=== PATIENT | male | born 1985 | race Caucasian/White ===

== ENCOUNTER 2016-10-30 15:43 | Emergency (ER) | payer BC ==
[2016-10-30 16:25] VITALS: BP 126/81
[2016-10-30] MEDS ORDERED: Ondansetron 4 MG/2 ML SDV IVPUSH ONE (16:27)
[2016-10-30] MEDS ORDERED: Sodium Chloride 0.9% 10 ML Syringe FLUSH PRN (16:27)
[2016-10-30] MEDS ORDERED: Ketorolac 30 MG/ML SDV IVPUSH ONE (16:28)
[2016-10-30] MEDS ORDERED: HYDROmorphone 1 MG/ML Syringe IVPUSH ONE (16:28)
[2016-10-30] MEDS ORDERED: Sodium Chloride 0.9% 1,000 ML IV SCH (16:30)
--- NOTE | 2016-10-30 17:02 | CT ---
CT abdomen and pelvis Technique: Multiple axial sections were obtained from above the kidneys inferiorly to the pubic symphysis. Intravenous and oral contrast was not utilized. Study has been performed as a ureteral stone protocol. Comparison: Previous CT abdomen and pelvis study of 03/16/15. Findings: Mild left-sided hydronephrosis is seen. Left ureter is mildly dilated down to the UVJ. This is due to an obstructing stone measuring about 3.4 mm near the UVJ. No other abnormal calcifications are seen along the course of the ureters. Very minimal nonobstructing stone is noted within the mid left kidney measuring about a millimeter. No abnormal calcifications are seen within the right kidney or right ureter. Visualized lung bases shows nothing acute. Liver has an unremarkable noncontrast appearance. Spleen appears within normal limits. Adrenal glands show no nodule. Pancreas appears within normal limits. Aorta shows no aneurysmal dilatation. No retroperitoneal adenopathy or mesenteric abnormalities are seen. No calcified gallstones are seen. Appendix is seen and appears normal. No pelvic mass or adenopathy is seen. No free fluid or inflammatory change is identified. Impression: 1. Distal left ureteral stone at the UVJ causing mild left-sided hydronephrosis. Minimal 1 mm nonobstructing stone within the mid left kidney. 2. No additional abnormality is seen on noncontrast CT study of the abdomen and pelvis. Diagnostic code #3
--- NOTE | 2016-10-30 18:15 | EDM.PDOC ---
ED HPI GI/ABDOMINAL - General Chief Complaint: Flank Pain Stated Complaint: POSS KIDNEY STONES Time Seen by Provider: 10/30/16 16:12 Source of Information: Reports: Patient History Limitations: Reports: No limitations - History of Present Illness INITIAL COMMENTS - FREE TEXT/NARRATIVE: The patient says he did not feel right this morning and later in the day he developed left flank pain that went to his left lower abdomen. He also has nausea and vomiting. He has a history of kidney stones. He also has some pain in his testicle. Timing/Duration: Reports: Hour(s): Location: flank (left lower abdomen) Quality: Reports: stabbing Severity: severe Context: Denies: sick contact, bad/questionable food, out of country travel, recent surgery, recent trauma, lifting, activity/exercise Associated Symptoms: Reports: back pain, testicular pain, nausea/vomiting. Denies: diarrhea, fever/chills - Related Data Allergies/ADRs: Allergies Allergy/AdvReac Type Severity Reaction Status Date / Time No Known Allergies Allergy Verified 10/30/16 16:25 Home Meds: Home Meds Albuterol [IJD: Ventolin HFA] 2 puff INH Q6HR PRN #18 gm 04/29/16 [Rx] Doxycycline [Vibramycin] 100 mg PO Q12HR #20 cap 04/29/16 [Rx] Ondansetron [Zofran ODT] 4 mg PO Q6H PRN #20 tab.dis 04/29/16 [Rx] Tamsulosin HCl [Flomax] 0.4 mg PO DAILY #7 cap.er.24h 10/30/16 [Rx] oxyCODONE HCl/Acetaminophen [Percocet 5-325 mg Tablet] 1 - 2 each PO Q6HR PRN # 20 tablet 10/30/16 [Rx] Past Medical History - Past Health History Medical/Surgical History: Denies Medical/Surgical History HEENT History: Reports: None Genitourinary History: Reports: Renal calculus Social & Family History - Tobacco Use Smoking Status *Q: Never Smoker Second Hand Smoke Exposure: No - Recreational Drug Use Recreational Drug Use: No ED ROS GENERAL - Review of Systems Review Of Systems: See Below Constitutional: Reports: no symptoms HEENT: Reports: No symptoms Respiratory: Reports: no symptoms Cardiovascular: Reports: No symptoms Endocrine: Reports: no symptoms GI/Abdominal: Reports: Abdominal pain (left lower abdomen) : Reports: flank pain (left) Musculoskeletal: Reports: no symptoms Skin: Reports: no symptoms Neurological: Reports: no symptoms ED EXAM, GI/ABD - Physical Exam Exam: See Below Exam Limited By: No limitations General Appearance: alert, no apparent distress Ears: normal external exam Nose: normal inspection Head: atraumatic, normocephalic Neck: normal inspection Respiratory/Chest: no respiratory distress, lungs clear, normal breath sounds Cardiovascular: regular rate, rhythm, no edema, no murmur GI/Abdominal: soft, non tender, no organomegaly, no mass Back Exam: CVA tenderness (L) (mild) Course - Vital Signs Last Recorded V/S: Last Vital Signs Temp 98.3 F 10/30/16 16:22 Pulse 69 10/30/16 16:22 Resp 16 10/30/16 16:22 BP 126/81 10/30/16 16:22 Pulse Ox 98 10/30/16 16:22 - Orders/Labs/Meds Orders: Active Orders 24 hr Category Date Time Status Peripheral IV Care [RC] . DIRECTED Care 10/30/16 16:27 Active Sodium Chloride 0.9% [Normal Saline] 1,000 ml Med 10/30/16 16:30 Active IV ASDIRECTED Sodium Chloride 0.9% [Saline Flush] Med 10/30/16 16:27 Active 10 ml FLUSH ASDIRECTED PRN ED Antiemetic Medication Reflex [OM.PC] Stat Oth 10/30/16 16:27 Ordered Peripheral IV Insertion Adult [OM.PC] Stat Oth 10/30/16 16:27 Ordered Medication Orders Sodium Chloride (Normal Saline) 1,000 mls @ 125 mls/hr IV ASDIRECTED WILLARD Last Admin: 10/30/16 16:59 Dose: 125 mls/hr Sodium Chloride (Saline Flush) 10 ml FLUSH ASDIRECTED PRN PRN Reason: Keep Vein Open Last Admin: 10/30/16 17:03 Dose: 10 ml Labs: Laboratory Tests 10/30/16 10/30/16 10/30/16 Range/Units 16:30 16:55 16:55 WBC 15.45 H (4.23-9.07) K/mm3 RBC 5.33 (4.63-6.08) M/mm3 Hgb 15.7 (13.7-17.5) gm/L Hct 45.9 (40.1-51.0) % MCV 86.1 (79.0-92.2) fl MCH 29.5 (25.7-32.2) pg MCHC 34.2 (32.2-35.5) g/dl RDW Std Deviation 42.0 (35.1-43.9) fL Plt Count 312 (163-337) K/mm3 MPV 10.1 (9.4-12.3) fl Neut % (Auto) 79.4 H (34.0-67.9) % Lymph % (Auto) 11.6 L (21.8-53.1) % [place] % (Auto) 8.5 (5.3-12.2) % Eos % (Auto) 0.2 L (0.8-7.0) Baso % (Auto) 0.1 (0.1-1.2) % Neut # 12.27 H (1.78-5.38) K/mm3 Lymph # 1.79 (1.32-3.57) K/mm3 [place] # 1.31 H (0.30-0.82) K/mm3 Eos # 0.03 L (0.04-0.54) K/mm3 Baso # 0.02 (0.01-0.08) K/mm3 Sodium 138 (136-145) mEq/L Potassium 3.9 (3.5-5.1) mEq/L Chloride 101 (98-107) mEq/L Carbon Dioxide 21 (21-32) mEq/L Anion Gap 19.9 H (5-15) BUN 14 (7-18) mg/dL Creatinine 1.5 H (0.7-1.3) mg/dL Est Cr Clr Drug Dosing 66.10 mL/min Estimated GFR (MDRD) 54 (>60) mL/min BUN/Creatinine Ratio 9.3 L (14-18) Glucose 89 (74-106) mg/dL Calcium 9.2 (8.5-10.1) mg/dL Total Bilirubin 2.3 H (0.2-1.0) mg/dL AST 21 (15-37) U/L ALT 34 (16-63) U/L Alkaline Phosphatase 73 (46-116) U/L Total Protein 7.8 (6.4-8.2) g/dl Albumin 4.4 (3.4-5.0) g/dl Globulin 3.4 gm/dL Albumin/Globulin Ratio 1.3 (1-2) Lipase 142 (73-393) U/L Urine Color Light yellow (Yellow) Urine Appearance Clear (Clear) Urine pH 5.5 (5.0-8.0) Ur Specific [place] > or = 1.030 (1.005-1.030) Urine Protein Trace H (Negative) Urine Glucose (UA) Negative (Negative) Urine Ketones 3+ H (Negative) Urine Occult Blood 3+ H (Negative) Urine Nitrite Negative (Negative) Urine Bilirubin 1+ H (Negative) Urine Urobilinogen 0.2 (0.2-1.0) Ur Leukocyte Esterase Negative (Negative) Urine RBC 5-10 H (0-5) /hpf Urine WBC 0-5 (0-5) /hpf Ur Epithelial Cells Not seen (0-5) /hpf Urine Bacteria Few (FEW) /hpf Urine Mucus Not seen (FEW) /hpf Meds: Medications Generic Name Dose Route Start Last Admin Trade Name Freq PRN Reason Stop Dose Admin Sodium Chloride 1,000 mls @ 125 mls/hr 10/30/16 16:30 10/30/16 16:59 Normal Saline IV 125 mls/hr ASDIRECTED WILLARD Administration Sodium Chloride 10 ml 10/30/16 16:27 10/30/16 17:03 Saline Flush FLUSH 10 ml ASDIRECTED PRN Administration Keep Vein Open Discontinued Medications Generic Name Dose Route Start Last Admin Trade Name Freq PRN Reason Stop Dose Admin Hydromorphone HCl 1 mg 10/30/16 16:28 10/30/16 17:02 Dilaudid IVPUSH 10/30/16 16:29 1 mg ONETIME ONE Administration Ketorolac Tromethamine 30 mg 10/30/16 16:28 10/30/16 17:01 Toradol IVPUSH 10/30/16 16:29 30 mg ONETIME ONE Administration Ondansetron HCl 4 mg 10/30/16 16:27 10/30/16 17:00 Zofran IVPUSH 10/30/16 16:28 4 mg ONETIME ONE Administration - Re-Assessments/Exams Free Text/Narrative Re-Assessment/Exam: 10/30/16 18:13 I ordered an IV NS at 125mL/hr, zofran 4mg IV, dilaudid 1mg IV and toradol 30mg IV. His labs look good. His UA shows blood. His CT shows a 3.4mm stone at the left UVJ causing mild left-sided hydronephrosis. Minimal 1mm nonobstructing stone within the mid left kidney. He is doing better. I will discharge him on flomax and percocet for pain. Departure - Departure Time of Disposition: 18:15 Disposition: Home, Self-Care 01 Condition: good Clinical Impression: Ureteric colic, Kidney stone on left side, Ureteral calculi Prescriptions: oxyCODONE HCl/Acetaminophen [Percocet 5-325 mg Tablet] 1 - 2 each PO Q6HR PRN # 20 tablet PRN Reason: Pain Tamsulosin HCl [Flomax] 0.4 mg PO DAILY #7 cap.er.24h Referrals: Sergio Silva MD [Physician] - 1 Week (If not better) Forms: ED Department Discharge Additional Instructions: Drink plenty of fluids. Take the flomax daily. Take the percocet as needed for pain. Please return if you are worse. - My Orders Last 24 Hours: My Active Orders 10/30/16 16:27 Peripheral IV Care [RC] . DIRECTED Sodium Chloride 0.9% [Saline Flush] 10 ml FLUSH ASDIRECTED PRN ED Antiemetic Medication Reflex [OM.PC] Stat Peripheral IV Insertion Adult [OM.PC] Stat 10/30/16 16:30 Sodium Chloride 0.9% [Normal Saline] 1,000 ml IV ASDIRECTED - Assessment/Plan Last 24 Hours: My Active Orders 10/30/16 16:27 Peripheral IV Care [RC] . DIRECTED Sodium Chloride 0.9% [Saline Flush] 10 ml FLUSH ASDIRECTED PRN ED Antiemetic Medication Reflex [OM.PC] Stat Peripheral IV Insertion Adult [OM.PC] Stat 10/30/16 16:30 Sodium Chloride 0.9% [Normal Saline] 1,000 ml IV ASDIRECTED
== END 2016-10-30 18:45 | disposition home or self-care (01) ==
LOC: JD.ED 15:43
DX: N20.1 Calculus of ureter (principal); Z87.442 Personal history of urinary calculi; Z79.899 Other long term (current) drug therapy
CPT/HCPCS: 36415; 74176; 80053; 81001; 83690; 85025; 96361; 96374; 96375; 99284; J1170; J1885; J2405; J7040; J7050

== ENCOUNTER 2016-11-01 20:07 | Emergency (ER) | payer BC ==
[2016-11-01] MEDS ORDERED: Ketorolac 30 MG/ML SDV IVPUSH ONE (20:23)
[2016-11-01] MEDS ORDERED: Ondansetron 4 MG/2 ML SDV IVPUSH ONE (20:23)
[2016-11-01 20:24] VITALS: BP 129/74
[2016-11-01] MEDS ORDERED: HYDROmorphone 1 MG/ML Syringe IVPUSH ONE (20:24)
[2016-11-01] MEDS ORDERED: Sodium Chloride 0.9% 1,000 ML IV SCH (20:30)
--- NOTE | 2016-11-01 20:32 | EDM.PDOC ---
ED HPI RENAL/ - General Chief Complaint: Abdominal Pain Stated Complaint: LOWER LEFT SIDE PAIN NAUSEA CONSTIPATION Time Seen by Provider: 11/01/16 20:12 Source of Information: Reports: Patient History Limitations: Reports: No limitations - History of Present Illness INITIAL COMMENTS - FREE TEXT/NARRATIVE: this is a 31-year-old male. He was seen 2 days ago for left flank pain and was found to have a 3.4 mm stone on the left side with some mild hydronephrosis. He was sent home with medicine for pain and Flomax. He states over the last day or so he has not been able to drink fluids without vomiting he feels dehydrated and the pain in the left flank is gotten worse this evening. He denies any fever or chills he has not noted any blood in his urine though the urine has been dark. He denies any other acute symptoms. He is set up to see Dr. Silva in [place] if he does not pass the stone. Patient indicated that at times the pain radiates into the left groin but hasn't gotten into his left testicle at this time. - Related Data Allergies/ADRs: Allergies Allergy/AdvReac Type Severity Reaction Status Date / Time No Known Allergies Allergy Verified 11/01/16 20:16 Home Meds: Home Meds Tamsulosin HCl [Flomax] 0.4 mg PO DAILY #7 cap.er.24h 10/30/16 [Rx] oxyCODONE HCl/Acetaminophen [Percocet 5-325 mg Tablet] 1 - 2 each PO Q6HR PRN # 20 tablet 10/30/16 [Rx] Ondansetron [Zofran ODT] 4 mg PO Q6H PRN #12 tab.dis 11/01/16 [Rx] Past Medical History - Past Health History Medical/Surgical History: Denies Medical/Surgical History HEENT History: Reports: None Genitourinary History: Reports: Renal calculus Social & Family History - Tobacco Use Smoking Status *Q: Never Smoker Second Hand Smoke Exposure: No - Recreational Drug Use Recreational Drug Use: No ED ROS GENERAL - Review of Systems Review Of Systems: See Below Constitutional: Denies: fever, chills HEENT: Reports: No symptoms Respiratory: Reports: no symptoms Cardiovascular: Reports: No symptoms Endocrine: Reports: no symptoms GI/Abdominal: Reports: Decreased appetite, Nausea, Vomiting. Denies: Diarrhea : Reports: flank pain Musculoskeletal: Reports: no symptoms Skin: Reports: no symptoms Neurological: Reports: no symptoms Psychiatric: Reports: No symptoms Hematologic/Lymphatic: Reports: no symptoms Immunologic: Reports: no symptoms ED EXAM, RENAL/ - Physical Exam Exam: See Below Exam Limited By: No limitations General Appearance: alert, WD/WN, no apparent distress Eye Exam: bilateral eye: normal inspection Ears: normal external exam Nose: normal inspection Throat/Mouth: Normal inspection, Normal lips, Normal voice Head: normocephalic Neck: supple Respiratory/Chest: no respiratory distress, lungs clear, normal breath sounds Cardiovascular: regular rate, rhythm, no murmur GI/Abdominal: other (abdomen is enlarged, and soft, he does have some minimal tenderness in the left flank area on palpation but no other abdominal soreness or tenderness on palpation, bowel sounds are decreased) Back Exam: full range of motion Extremities: normal inspection, normal range of motion Neurological: alert, oriented Psychiatric: normal affect, normal mood Skin Exam: Warm, Dry Course - Vital Signs Last Recorded V/S: Last Vital Signs Temp 98.2 F 11/01/16 20:17 Pulse 60 11/01/16 20:17 Resp 18 11/01/16 20:17 BP 129/74 11/01/16 20:17 Pulse Ox 100 11/01/16 20:17 - Orders/Labs/Meds Orders: Active Orders 24 hr Category Date Time Status Sodium Chloride 0.9% [Normal Saline] 1,000 ml Med 11/01/16 20:30 Active IV ASDIRECTED Medication Orders Sodium Chloride (Normal Saline) 1,000 mls @ 1,000 mls/hr IV ASDIRECTED WILLARD Last Admin: 11/01/16 20:29 Dose: 1,000 mls/hr Labs: Laboratory Tests 11/01/16 11/01/16 11/01/16 Range/Units 20:25 20:25 21:11 WBC 12.65 H (4.23-9.07) K/mm3 RBC 4.96 (4.63-6.08) M/mm3 Hgb 14.6 (13.7-17.5) gm/L Hct 43.4 (40.1-51.0) % MCV 87.5 (79.0-92.2) fl MCH 29.4 (25.7-32.2) pg MCHC 33.6 (32.2-35.5) g/dl RDW Std Deviation 41.5 (35.1-43.9) fL Plt Count 271 (163-337) K/mm3 MPV 10.3 (9.4-12.3) fl Neut % (Auto) 69.6 H (34.0-67.9) % Lymph % (Auto) 17.0 L (21.8-53.1) % [place] % (Auto) 12.9 H (5.3-12.2) % Eos % (Auto) 0.2 L (0.8-7.0) Baso % (Auto) 0.1 (0.1-1.2) % Neut # 8.81 H (1.78-5.38) K/mm3 Lymph # 2.15 (1.32-3.57) K/mm3 [place] # 1.63 H (0.30-0.82) K/mm3 Eos # 0.03 L (0.04-0.54) K/mm3 Baso # 0.01 (0.01-0.08) K/mm3 Manual Slide Review Normal smear Sodium 139 (136-145) mEq/L Potassium 3.9 (3.5-5.1) mEq/L Chloride 104 (98-107) mEq/L Carbon Dioxide 25 (21-32) mEq/L Anion Gap 13.9 (5-15) BUN 12 (7-18) mg/dL Creatinine 1.7 H (0.7-1.3) mg/dL Est Cr Clr Drug Dosing TNP Estimated GFR (MDRD) 47 (>60) mL/min BUN/Creatinine Ratio 7.1 L (14-18) Glucose 100 (74-106) mg/dL Calcium 9.3 (8.5-10.1) mg/dL Total Bilirubin 2.4 H (0.2-1.0) mg/dL AST 10 L (15-37) U/L ALT 23 (16-63) U/L Alkaline Phosphatase 69 (46-116) U/L Total Protein 7.3 (6.4-8.2) g/dl Albumin 3.8 (3.4-5.0) g/dl Globulin 3.5 gm/dL Albumin/Globulin Ratio 1.1 (1-2) Urine Color Dark yellow (Yellow) Urine Appearance Clear (Clear) Urine pH 5.5 (5.0-8.0) Ur Specific [place] 1.025 (1.005-1.030) Urine Protein Trace H (Negative) Urine Glucose (UA) Negative (Negative) Urine Ketones 2+ H (Negative) Urine Occult Blood 2+ H (Negative) Urine Nitrite Positive H (Negative) Urine Bilirubin Negative (Negative) Urine Urobilinogen 0.2 (0.2-1.0) Ur Leukocyte Esterase Negative (Negative) Urine RBC 0-5 (0-5) /hpf Urine WBC 5-10 H (0-5) /hpf Urine WBC Clumps Rare (NOT SEEN) /hpf Ur Epithelial Cells 0-5 (0-5) /hpf Urine Bacteria Few (FEW) /hpf Urine Mucus Few (FEW) /hpf Meds: Medications Generic Name Dose Route Start Last Admin Trade Name Freq PRN Reason Stop Dose Admin Sodium Chloride 1,000 mls @ 1,000 mls/hr 11/01/16 20:30 11/01/16 20:29 Normal Saline IV 1,000 mls/hr ASDIRECTED WILLARD Administration Discontinued Medications Generic Name Dose Route Start Last Admin Trade Name Freq PRN Reason Stop Dose Admin Hydromorphone HCl 0.5 mg 11/01/16 20:24 11/01/16 20:36 Dilaudid IVPUSH 11/01/16 20:25 0.5 mg ONETIME ONE Administration Sodium Chloride 1,000 mls @ 1,000 mls/hr 11/01/16 21:37 11/01/16 21:40 Normal Saline IV 11/01/16 22:36 1,000 mls/hr ONETIME ONE Administration Ketorolac Tromethamine 30 mg 11/01/16 20:23 11/01/16 20:31 Toradol IVPUSH 11/01/16 20:24 30 mg ONETIME ONE Administration Ondansetron HCl 4 mg 11/01/16 20:23 11/01/16 20:30 Zofran IVPUSH 11/01/16 20:24 4 mg ONETIME ONE Administration - Re-Assessments/Exams Free Text/Narrative Re-Assessment/Exam: 11/01/16 23:49 I spoke to the patient. His test results look good he was slightly dehydrated. His urine shows some ketones as well. I will provide some Zofran for his nausea so he is able to keep fluids down and well-hydrated. He knows to strain his urine for the kidney stone. He also knows that if he doesn't pass the stone within the next week he is to followup with Dr. Silva in [place]. Departure - Departure Time of Disposition: 23:51 Disposition: Home, Self-Care 01 Condition: good Clinical Impression: Left nephrolithiasis, Ureteral colic Nausea & vomiting Qualifiers: Vomiting type: unspecified Vomiting Intractability: non-intractable Qualified Code(s): R11.2 - Nausea with vomiting, unspecified Prescriptions: Ondansetron [Zofran ODT] 4 mg PO Q6H PRN #12 tab.dis PRN Reason: Vomiting Referrals: Sergio Silva MD [Physician] - Forms: ED Department Discharge Additional Instructions: continue with pain medication and Flomax, continue straining your urine for the kidney stone when you urinate, use the medication as needed for nausea, continue to drink lots of fluids, follow up with Dr. Silva in [place] if you do not pass the stone within one week, return to the ER if needed - My Orders Last 24 Hours: My Active Orders 11/01/16 20:30 Sodium Chloride 0.9% [Normal Saline] 1,000 ml IV ASDIRECTED - Assessment/Plan Last 24 Hours: My Active Orders 11/01/16 20:30 Sodium Chloride 0.9% [Normal Saline] 1,000 ml IV ASDIRECTED
[2016-11-01] MEDS ORDERED: Sodium Chloride 0.9% 1,000 ML IV ONE (21:37)
== END 2016-11-02 00:10 | disposition home or self-care (01) ==
LOC: JD.ED 20:07
DX: N20.2 Calculus of kidney with calculus of ureter (principal); Z79.899 Other long term (current) drug therapy
CPT/HCPCS: 36415; 80053; 81001; 85025; 96361; 96374; 96375; 99284; J1170; J1885; J2405; J7040

== ENCOUNTER 2016-11-02 20:54 | Emergency (ER) | payer BC ==
[2016-11-02 21:18] VITALS: BP 142/81
[2016-11-02] MEDS ORDERED: HYDROmorphone 1 MG/ML Syringe IVPUSH ONE (21:56)
[2016-11-02] MEDS ORDERED: Metoclopramide 10 MG/2 ML SDV IVPUSH ONE (21:56)
[2016-11-02] MEDS ORDERED: Hyoscyamine 0.125 MG Tab.SL SL ONE (22:01)
[2016-11-02] MEDS ORDERED: diphenhydrAMINE 50 MG/ML SDV IVPUSH ONE (22:01)
[2016-11-02] MEDS ORDERED: Sodium Chloride 0.9% 10 ML Syringe FLUSH PRN (22:07)
[2016-11-02] MEDS ORDERED: Sodium Chloride 0.9% 1,000 ML IV ONE ×2 (22:07→23:31)
--- NOTE | 2016-11-02 22:12 | EDM.PDOC ---
<Giovanni Aguilar - Last Filed: 11/03/16 03:54> ED HPI GI/ABDOMINAL - General Chief Complaint: Gastrointestinal Problem Stated Complaint: VOMITING CONSTIPATION AB PAIN/LOWER BACK PAIN Time Seen by Provider: 11/02/16 21:35 - Related Data Allergies/ADRs: Allergies Allergy/AdvReac Type Severity Reaction Status Date / Time No Known Allergies Allergy Verified 11/02/16 21:09 Home Meds: Home Meds Tamsulosin HCl [Flomax] 0.4 mg PO DAILY #7 cap.er.24h 10/30/16 [Rx] oxyCODONE HCl/Acetaminophen [Percocet 5-325 mg Tablet] 1 - 2 each PO Q6HR PRN # 20 tablet 10/30/16 [Rx] Ondansetron [Zofran ODT] 4 mg PO Q6H PRN #12 tab.dis 11/01/16 [Rx] Acetaminophen/oxyCODONE [Percocet 325-5 MG] 1 tab PO Q6H PRN #20 tablet [Rx] Metoclopramide HCl [Reglan] 5 mg PO Q6HR #14 tablet 11/03/16 [Rx] Course - Vital Signs Last Recorded V/S: Last Vital Signs Temp 98.3 F 11/02/16 21:11 Pulse 46 L 11/02/16 21:11 Resp 16 11/02/16 21:11 BP 142/81 H 11/02/16 21:11 Pulse Ox 100 11/02/16 21:11 - Orders/Labs/Meds Orders: Active Orders 24 hr Category Date Time Status Enema [RC] ASDIRECTED Care 11/02/16 23:12 Active Enema [RC] ASDIRECTED Care 11/03/16 01:00 Active Peripheral IV Care [RC] . DIRECTED Care 11/02/16 22:07 Active Peripheral IV Insertion Adult [OM.PC] Stat Oth 11/02/16 22:07 Ordered Labs: Laboratory Tests 11/02/16 11/02/16 11/02/16 Range/Units 22:00 22:00 23:06 WBC 12.42 H (4.23-9.07) K/mm3 RBC 4.82 (4.63-6.08) M/mm3 Hgb 14.3 (13.7-17.5) gm/L Hct 42.2 (40.1-51.0) % MCV 87.6 (79.0-92.2) fl MCH 29.7 (25.7-32.2) pg MCHC 33.9 (32.2-35.5) g/dl RDW Std Deviation 41.4 (35.1-43.9) fL Plt Count 267 (163-337) K/mm3 MPV 10.6 (9.4-12.3) fl Neut % (Auto) 73.4 H (34.0-67.9) % Lymph % (Auto) 14.9 L (21.8-53.1) % Ray % (Auto) 10.9 (5.3-12.2) % Eos % (Auto) 0.4 L (0.8-7.0) Baso % (Auto) 0.2 (0.1-1.2) % Neut # 9.13 H (1.78-5.38) K/mm3 Lymph # 1.85 (1.32-3.57) K/mm3 Ray # 1.35 H (0.30-0.82) K/mm3 Eos # 0.05 (0.04-0.54) K/mm3 Baso # 0.02 (0.01-0.08) K/mm3 Sodium 140 (136-145) mEq/L Potassium 4.2 (3.5-5.1) mEq/L Chloride 104 (98-107) mEq/L Carbon Dioxide 24 (21-32) mEq/L Anion Gap 16.2 H (5-15) BUN 12 (7-18) mg/dL Creatinine 1.9 H (0.7-1.3) mg/dL Est Cr Clr Drug Dosing TNP Estimated GFR (MDRD) 41 (>60) mL/min BUN/Creatinine Ratio 6.3 L (14-18) Glucose 101 (74-106) mg/dL Calcium 9.4 (8.5-10.1) mg/dL Total Bilirubin 2.0 H (0.2-1.0) mg/dL AST 14 L (15-37) U/L ALT 32 (16-63) U/L Alkaline Phosphatase 70 (46-116) U/L C-Reactive Protein 6.4 H* (<1.0) mg/dL Total Protein 7.4 (6.4-8.2) g/dl Albumin 3.8 (3.4-5.0) g/dl Globulin 3.6 gm/dL Albumin/Globulin Ratio 1.1 (1-2) Urine Color Yellow (Yellow) Urine Appearance Clear (Clear) Urine pH 8.0 (5.0-8.0) Ur Specific Ensign 1.020 (1.005-1.030) Urine Protein Negative (Negative) Urine Glucose (UA) Negative (Negative) Urine Ketones 2+ H (Negative) Urine Occult Blood 2+ H (Negative) Urine Nitrite Negative (Negative) Urine Bilirubin Negative (Negative) Urine Urobilinogen 0.2 (0.2-1.0) Ur Leukocyte Esterase Negative (Negative) Urine RBC 0-5 (0-5) /hpf Urine WBC 0-5 (0-5) /hpf Ur Squamous Epith Cells Not seen (0-5) /hpf Urine Bacteria Rare (FEW) /hpf Urine Mucus Few (FEW) /hpf Meds: Medications Discontinued Medications Generic Name Dose Route Start Last Admin Trade Name Bryce PRN Reason Stop Dose Admin Bisacodyl 10 mg 11/03/16 03:22 11/03/16 04:01 Dulcolax RECTAL 11/03/16 03:23 10 mg ONETIME ONE Administration Diphenhydramine HCl 25 mg 11/02/16 22:01 11/02/16 22:20 Benadryl IVPUSH 11/02/16 22:02 25 mg ONETIME ONE Administration Hydromorphone HCl 1 mg 11/02/16 21:56 11/02/16 22:17 Dilaudid IVPUSH 11/02/16 21:57 1 mg ONETIME ONE Administration Hydromorphone HCl 0.5 mg 11/02/16 23:44 11/02/16 23:53 Dilaudid IVPUSH 11/02/16 23:45 0.5 mg ONETIME ONE Administration Hyoscyamine 0.125 mg 11/02/16 22:01 11/02/16 22:18 Hyomax-Sl SL 11/02/16 22:02 0.125 mg ONETIME ONE Administration Sodium Chloride 1,000 mls @ 999 mls/hr 11/02/16 22:07 11/02/16 22:15 Normal Saline IV 11/02/16 23:07 999 mls/hr ONETIME ONE Administration Sodium Chloride 1,000 mls @ 999 mls/hr 11/02/16 23:31 11/02/16 23:53 Normal Saline IV 11/03/16 00:31 999 mls/hr ONETIME ONE Administration Sodium Chloride 1,000 mls @ 999 mls/hr 11/03/16 02:30 11/03/16 02:29 Normal Saline IV 999 mls/hr ONETIME WILLARD Administration Ketorolac Tromethamine 30 mg 11/03/16 02:30 11/03/16 02:34 Toradol IVPUSH 30 mg ONETIME WILLARD Administration Lorazepam 0.5 mg 11/02/16 23:41 11/02/16 23:59 Ativan IVPUSH 11/02/16 23:42 0.5 mg ONETIME ONE Administration Metoclopramide HCl 7.5 mg 11/02/16 21:56 11/02/16 22:15 Reglan IVPUSH 11/02/16 21:57 7.5 mg ONETIME ONE Administration Metoclopramide HCl 5 mg 11/03/16 03:03 11/03/16 03:08 Reglan IVPUSH 11/03/16 03:04 5 mg ONETIME ONE Administration Ondansetron HCl 4 mg 11/03/16 02:23 11/03/16 02:29 Zofran IVPUSH 11/03/16 02:24 4 mg ONETIME ONE Administration Sodium Chloride 10 ml 11/02/16 22:07 11/02/16 22:22 Saline Flush FLUSH 10 ml ASDIRECTED PRN Administration Keep Vein Open Tamsulosin HCl 0.4 mg 11/02/16 23:41 11/03/16 00:06 Flomax PO 11/02/16 23:42 0.4 mg ONETIME ONE Administration - Re-Assessments/Exams Free Text/Narrative Re-Assessment/Exam: 11/03/16 02:15. Have assumed care from Luis Alfredo after change of shift. I agree with hx and exam as documented by Luis Alfredo. His labs and Xrays have been reviewed. Patient has remained in ED receiving further IV fluid and has also had a 2nd emema with some but not great results with both of those. He still does not feel like he needs to void after 2 liters NS since voiding on arrival to ED. Will give 1 further liter of NS prior to discharge. Departure - Departure Disposition: Home, Self-Care 01 Condition: fair Clinical Impression: Ureteric colic, Vomiting, Dehydration, Acute constipation Prescriptions: Metoclopramide HCl [Reglan] 5 mg PO Q6HR #14 tablet Acetaminophen/oxyCODONE [Percocet 325-5 MG] 1 tab PO Q6H PRN #20 tablet PRN Reason: Abdominal Pain Instructions: Kidney Stones, [id number], Dehydration, Adult, [id number], Constipation, Adult Referrals: PCP,None [Primary Care Provider] - Forms: ED Department Discharge, Return to Work/School Form Additional Instructions: drink plenty of water to maintain hydration, Reglan 5 mg orally every 6 hours while awake for nausea vomiting difficulty, take Zofran ODT in between doses of the Reglan also for nausea vomiting. I suggest taking MiraLax to help you with the constipation and also a Dulcolax suppository. One will be sent home with you. You may sisal picker more from your pharmacy when you get the reglan prescription filled. Continue to strain urine to watch for stone. If you have not passed the stone by this morning call [facility] for appt. to see Urologist. This serves as your referral to see Urologist for 3.4 mm kidney stone that is not passing. Take disk of your CT to Urology for your appt. If [facility] cannot give you a timely referral try [facility]. If that is not working call our ED, [phone] for assistance as needed. Be sure to mention that you have required 3 visits to ED in 4 days for pain, nausea, vomiting and dehydration. - My Orders Last 24 Hours: My Active Orders 11/02/16 22:07 Peripheral IV Care [RC] . DIRECTED Peripheral IV Insertion Adult [OM.PC] Stat 11/02/16 23:12 Enema [RC] ASDIRECTED - Assessment/Plan Last 24 Hours: My Active Orders 11/02/16 22:07 Peripheral IV Care [RC] . DIRECTED Peripheral IV Insertion Adult [OM.PC] Stat 11/02/16 23:12 Enema [RC] ASDIRECTED <Luis Alfredo Healy O - Last Filed: 11/03/16 11:13> ED HPI GI/ABDOMINAL - General Source of Information: Reports: Patient, Family History Limitations: Reports: No limitations - History of Present Illness INITIAL COMMENTS - FREE TEXT/NARRATIVE: Patient is a 31 year old male who presents to the ED complaining of left lower quadrant abdominal pain, left flank pain, and left testicular pain. Patient was recently diagnosed with kidney stone measuring 3.4 mm in size on the left side with some mild hydronephrosis. In addition he had a 1 mm stone within the left kidney as well. He was discharged home with pain medications and Flomax. He stated over the next few days the discomfort was progressively getting worse. He had not been able to keep any fluids or foods down and felt dehydrated. States the pain to his left flank had progressively gotten worse. He noted discomfort that radiated to his left groin but not into his left testicle. He has been taking Percocet tabs and also Flomax as prescribed only to vomit these medications up shortly after taking. For pain he has been utilizing warm compresses to his left lower quadrant/left flank with some relief. States the pain is described as being sharp, achy, constant, with waxing and waning in intensity. States for the last day the pain to his testicle has grown intensity. In addition patient has not been able to have a bowel movement since diagnosed with a kidney stone. States administered 2 enemas to himself as well as taking mag citrate with no relief. He has been passing some gas as of yesterday but nothing today. His last bowel movement was described as small, hard, with mucus discharge present. He feels the constant need to defecate. Last large bowel movement was this past Thursday. Current discomfort is 4/10 with its peak reaching 10 out of 10. He was seen last night back in the ED for worsening pain. He was found to be slightly dehydrated and was administered IV fluids. He was discharged home with anti- nausea medications that he was unable to fill last night with pharmacy being closed. He was unable to fill it today as well. A friend of his did have a Zofran tab to which he took with minimal relief. Of note patient also noticed his left testicle has ascended farther up than normal. He has significant amount of pain with gentle touch. Pain radiates into his left inguinal region. He denies any recent trauma that may have precipitated this discomfort. He has no history of testicular torsion. Timing/Duration: Reports: Constant, Getting worse, Waxing/waning Location: LLQ (left testicle) Quality: Reports: ache, stabbing, throbbing Severity: severe Improves with: Reports: other (warm compresses) Worsens with: Reports: palpation, other (movement) Context: Reports: other (recently diagnosed with left sided kidney stone) Associated Symptoms: Reports: back pain (left lower), testicular pain (left), groin pain, constipation, loss of appetite, malaise, nausea/vomiting. Denies: diarrhea, bloody stools, fever/chills Treatments WIRE DROPPER: Reports: Other (see below) (SEE HPI) Past Medical History - Past Health History Medical/Surgical History: Denies Medical/Surgical History HEENT History: Reports: None Genitourinary History: Reports: Renal calculus - Infectious Disease History Infectious Disease History: Reports: Chicken pox Social & Family History - Tobacco Use Smoking Status *Q: Never Smoker Second Hand Smoke Exposure: No - Caffeine Use Caffeine Use: Reports: None - Recreational Drug Use Recreational Drug Use: No ED ROS GENERAL - Review of Systems Review Of Systems: See Below Constitutional: Reports: malaise, decreased appetite. Denies: fever, chills Respiratory: Reports: no symptoms Cardiovascular: Reports: No symptoms GI/Abdominal: Reports: Abdominal pain (left lower quadrant), Constipation, Distension, Flatus, Nausea, Vomiting. Denies: Diarrhea : Reports: pain. Denies: discharge, dysuria, frequency, urgency Musculoskeletal: Reports: back pain (left low back pain) ED EXAM, GI/ABD - Physical Exam Exam: See Below Exam Limited By: No limitations General Appearance: alert, WD/WN, moderate distress Ears: hearing grossly normal Nose: normal inspection Throat/Mouth: Normal voice, No airway compromise Neck: normal inspection, supple Respiratory/Chest: no respiratory distress, lungs clear, normal breath sounds Cardiovascular: normal peripheral pulses, regular rate, rhythm GI/Abdominal: soft, no organomegaly, hyperactive bowel sounds, tympanic bowel sounds, tenderness (left lower quadrant), distention (minimal) (Male) Exam: No hernia, Normal inspection, Circumcised, Cremasteric reflex ( patient lying down with minimal reflex present left side. ), Scrotum tenderness (L), Testicular tenderness (L). No: Hernia, Penile lesions, Scrotum tenderness (R), Testicular mass, Testicular tenderness (R) Rectal (Males) Exam: Normal exam, Normal rectal tone, Prostate normal, Other ( no stool within rectal vault. ). No: Fecal impaction Back Exam: normal inspection, full range of motion. No: CVA tenderness (L), CVA tenderness (R) Neurological: alert, oriented, CN II-XII intact, normal cognition, no motor/ sensory deficits Psychiatric: normal affect, normal mood Skin Exam: Warm, Dry, Intact, Normal color Course - Orders/Labs/Meds Labs: Laboratory Tests 11/02/16 11/02/16 11/02/16 Range/Units 22:00 22:00 23:06 WBC 12.42 H (4.23-9.07) K/mm3 RBC 4.82 (4.63-6.08) M/mm3 Hgb 14.3 (13.7-17.5) gm/L Hct 42.2 (40.1-51.0) % MCV 87.6 (79.0-92.2) fl MCH 29.7 (25.7-32.2) pg MCHC 33.9 (32.2-35.5) g/dl RDW Std Deviation 41.4 (35.1-43.9) fL Plt Count 267 (163-337) K/mm3 MPV 10.6 (9.4-12.3) fl Neut % (Auto) 73.4 H (34.0-67.9) % Lymph % (Auto) 14.9 L (21.8-53.1) % Ray % (Auto) 10.9 (5.3-12.2) % Eos % (Auto) 0.4 L (0.8-7.0) Baso % (Auto) 0.2 (0.1-1.2) % Neut # 9.13 H (1.78-5.38) K/mm3 Lymph # 1.85 (1.32-3.57) K/mm3 Ray # 1.35 H (0.30-0.82) K/mm3 Eos # 0.05 (0.04-0.54) K/mm3 Baso # 0.02 (0.01-0.08) K/mm3 Sodium 140 (136-145) mEq/L Potassium 4.2 (3.5-5.1) mEq/L Chloride 104 (98-107) mEq/L Carbon Dioxide 24 (21-32) mEq/L Anion Gap 16.2 H (5-15) BUN 12 (7-18) mg/dL Creatinine 1.9 H (0.7-1.3) mg/dL Est Cr Clr Drug Dosing TNP Estimated GFR (MDRD) 41 (>60) mL/min BUN/Creatinine Ratio 6.3 L (14-18) Glucose 101 (74-106) mg/dL Calcium 9.4 (8.5-10.1) mg/dL Total Bilirubin 2.0 H (0.2-1.0) mg/dL AST 14 L (15-37) U/L ALT 32 (16-63) U/L Alkaline Phosphatase 70 (46-116) U/L C-Reactive Protein 6.4 H* (<1.0) mg/dL Total Protein 7.4 (6.4-8.2) g/dl Albumin 3.8 (3.4-5.0) g/dl Globulin 3.6 gm/dL Albumin/Globulin Ratio 1.1 (1-2) Urine Color Yellow (Yellow) Urine Appearance Clear (Clear) Urine pH 8.0 (5.0-8.0) Ur Specific Ensign 1.020 (1.005-1.030) Urine Protein Negative (Negative) Urine Glucose (UA) Negative (Negative) Urine Ketones 2+ H (Negative) Urine Occult Blood 2+ H (Negative) Urine Nitrite Negative (Negative) Urine Bilirubin Negative (Negative) Urine Urobilinogen 0.2 (0.2-1.0) Ur Leukocyte Esterase Negative (Negative) Urine RBC 0-5 (0-5) /hpf Urine WBC 0-5 (0-5) /hpf Ur Squamous Epith Cells Not seen (0-5) /hpf Urine Bacteria Rare (FEW) /hpf Urine Mucus Few (FEW) /hpf - Re-Assessments/Exams Free Text/Narrative Re-Assessment/Exam: Ordered peripheral IV with normal saline 999ml/hr, Dilaudid 1 mg IVP, Reglan 7.5 mg IVP, Benadryl 25 mg IVP, levsin 0.125 mg sublingual, CBC, chem 14, CRP, UA, two-view of the abdomen, and testicular ultrasound. 11/02/16 22:12 Reassessment, patients pain has drastically improved. Ultrasound of the scrotum revealed no evidence of torsion or mass. Testicular microlithiasis. No acute findings. X-ray of the abdomen revealed multiple small fluid air levels and non specific air and stool pattern. This was reviewed by Dr. Aguilar possible small ileus present, but unlikely due to patient never having any abdominal surgeries and with recent diagnosis of kidney stone. Labs reviewed: WBC 12.42, HGb 14.3, platelets 267, +left shift, crp 6.4, AG 16.2 , CR 1.9, and total bilirubin 2.0. Cr function is above baseline of 1.1 back in Apr, 2016. I have ordered additional liter of fluid. Urine color this evening is straw colored. UA revealed 2+ketones and 2+ blood. Dr. Aguilar suggested patient having soap sudd enema. Ordered ativan 0.5mg IVP and flomax 0.4mg PO. 11/02/16 23:43 Reassessment, per patient pain is starting to come back. Ordered dilaudid 0.5mg IVP. Vitals Stable: BP 116/systolic, HR 66, SPO2 98% on room air. 11/03/16 00:11 It is my end of shift. Dr. Aguilar will take over patients care. Departure - Departure Time of Disposition: 03:59
[2016-11-02] MEDS ORDERED: LORazepam 2 MG/ML MDV IVPUSH ONE (23:41)
[2016-11-02] MEDS ORDERED: Tamsulosin 0.4 MG Cap.ER PO ONE (23:41)
[2016-11-02] MEDS ORDERED: HYDROmorphone 0.5 MG/0.5 ML Syringe IVPUSH ONE (23:44)
[2016-11-03] MEDS ORDERED: Ondansetron 4 MG/2 ML SDV IVPUSH ONE (02:23)
[2016-11-03] MEDS ORDERED: Ketorolac 30 MG/ML SDV IVPUSH SCH (02:30)
[2016-11-03] MEDS ORDERED: Sodium Chloride 0.9% 1,000 ML IV SCH (02:30)
[2016-11-03] MEDS ORDERED: Metoclopramide 10 MG/2 ML SDV IVPUSH ONE (03:03)
[2016-11-03] MEDS ORDERED: Bisacodyl 10 MG Supp RECTAL ONE (03:22)
--- NOTE | 2016-11-03 08:05 | US ---
Testicular ultrasound: Multiple real-time images of the testicles were obtained. Testicles have a homogeneous ultrasound appearance with the exception of multiple small calcifications compatible with microlithiasis. Both arterial and venous blood flow are seen within the testicles. Small 3 mm epididymal cyst noted on the left side. Small complicated hydroceles noted on both sides. Measurements: Right testicle: 4.7 x 1.9 x 3.3 cm Left testicle: 4.6 x 2.1 x 3.7 cm Impression: 1. Testicular microlithiasis. This is a normal variant but has been associated with slight increased risk of testicular carcinoma. 2. Small epididymal cyst on the left side and small complicated hydroceles on both sides. Diagnostic code #3 I agree with preliminary report issued by [email or web address] (preliminary report dictated on 11/03/16, 12:06 AM Central Time)
--- NOTE | 2016-11-03 08:05 | CR ---
Abdomen: Supine and upright views of the abdomen were obtained. Comparison: No previous abdominal x-ray, previous abdominal CT study of 10/30/16 is available. Small calcification noted within the left pelvis. This could possibly represent previous obstructing distal left ureteral stone on CT exam. Please correlate if patient has persisting symptoms. Bowel gas pattern is normal. No abnormal soft tissue mass is seen. No other abnormal calcifications noted. Bony structures are unremarkable. Impression: 1. Small calcification within the left side of the pelvis as described above. 2. Two-view abdominal x-ray is otherwise unremarkable. Diagnostic code #3
== END 2016-11-03 03:59 | disposition home or self-care (01) ==
LOC: JD.ED 20:54
DX: N23 Unspecified renal colic (principal); E86.0 Dehydration; K59.00 Constipation, unspecified; N50.3 Cyst of epididymis; Z79.899 Other long term (current) drug therapy; Z87.442 Personal history of urinary calculi
CPT/HCPCS: 36415; 74020; 76870; 80053; 81001; 85025; 86140; 93975; 96361; 96374; 96375; 96376; 99285; A9270; J1170; J1200; J1885; J2060; J2405; J2765; J7040; J7050; 99284

== ENCOUNTER 2017-05-10 14:02 | Emergency (ER) | payer BC ==
[2017-05-10 14:37] VITALS: BP 137/88
--- NOTE | 2017-05-10 15:29 | EDM.PDOC ---
ED HPI GENERAL MEDICAL PROBLEM - General Chief Complaint: Lower Extremity Injury/Pain Stated Complaint: Right knee pain Time Seen by Provider: 05/10/17 15:29 Source of Information: Reports: Patient, RN Notes Reviewed History Limitations: Reports: No Limitations - History of Present Illness INITIAL COMMENTS - FREE TEXT/NARRATIVE: 31 year old male presents to the ED with complaints of right knee pain. He awoke with pain and swelling a couple days ago. He denies injury but he reports a history of miniscal "sprain" about 1 year ago. He plays softball and denies any injury. He denies numbness or tingling. No fever or chills. Treatments HOLDER PILE DRIVING: Reports: Other (see below) Other Treatments HOLDER PILE DRIVING: ibuprofen at 0730 Right Knee Pain Score (Numeric/FACES): 6 - Related Data Allergies Allergy/AdvReac Type Severity Reaction Status Date / Time No Known Allergies Allergy Verified 05/10/17 14:35 Home Meds: Home Meds Meloxicam 7.5 mg PO DAILY #30 tablet 05/10/17 [Rx] Past Medical History Genitourinary History: Reports: Renal Calculus Social & Family History - Tobacco Use Smoking Status *Q: Never Smoker Review of Systems - Review of Systems Review Of Systems: See Below Constitutional: Denies: Fever Musculoskeletal: Reports: Joint Pain, Joint Swelling Skin: Reports: No Symptoms. Denies: Erythema, Wound Neurological: Reports: No Symptoms. Denies: Numbness, Tingling, Weakness ED EXAM, GENERAL - Physical Exam Exam: See Below Exam Limited By: No Limitations General Appearance: Alert, WD/WN, No Apparent Distress Extremities: Other (knee effusion to right knee. No bony point tenderness. He has full ROM. Knee is stable with varus and valgus maneouvers and drawer test. Neurovascular status intact. ) Neurological: Alert, Normal Cognition, No Motor/Sensory Deficits Skin Exam: Warm, Dry, Intact Course - Vital Signs Last Recorded V/S: Last Vital Signs Temp Pulse 60 05/10/17 14:35 Resp BP 137/88 05/10/17 14:35 Pulse Ox 98 05/10/17 14:35 - Orders/Labs/Meds Orders: Active Orders 24 hr Category Date Time Status Knee 3V Rt [CR] Stat Exams 05/10/17 15:45 Taken - Re-Assessments/Exams Free Text/Narrative Re-Assessment/Exam: Right knee x-rays are negative for bony abnormality. Will start patient on Meloxicam and refer him to Ortho. He has a knee brace at home and was instructed to utilize this as needed. Educated on supportive care. If he does not improve with anti-inflammatories and time, MRI would be indicated. Departure - Departure Time of Disposition: 17:04 Disposition: Home, Self-Care 01 Condition: Good Clinical Impression: Effusion of knee joint right Knee pain, right Qualifiers: Chronicity: acute Qualified Code(s): M25.561 - Pain in right knee - Discharge Information Prescriptions: Meloxicam 7.5 mg PO DAILY #30 tablet Instructions: Knee Pain Referrals: PCP,None [Primary Care Provider] - Forms: ED Department Discharge Additional Instructions: Rest, ice and elevate Colin wrap as tolerated Wear your knee brace when participating in sports or exercising Meloxicam 7.5mg once a day for 1 week, may increase to 2 tabs twice a day if needed Tylenol 650mg every4-6 hours as needed for pain not relieved by Meloxicam Follow-up with one of our orthpedic surgeons in 1-2 weeks for recheck: Dr. Serra [phone] Dr. Watkins [phone] - My Orders Last 24 Hours: My Active Orders 05/10/17 15:45 Knee 3V Rt [CR] Stat - Assessment/Plan Last 24 Hours: My Active Orders 05/10/17 15:45 Knee 3V Rt [CR] Stat
--- NOTE | 2017-05-11 08:38 | CR ---
Right knee: AP, lateral and sunrise patellar views were obtained of the right knee. Comparison: No previous study. Medial and lateral joint spaces are maintained in height. Minimal calcification is noted within the patellar tendon which is felt to be incidental. Small joint effusion is seen. No acute fracture or other bony abnormality is identified. Impression: 1. Small joint effusion and soft tissue calcifications. 2. No acute bony abnormality is identified. Diagnostic code #2
== END 2017-05-10 17:22 | disposition home or self-care (01) ==
LOC: JD.ED 14:02 → MERGE 14:02 → JD.ED 17:22
DX: M25.461 Effusion, right knee (principal); Z87.442 Personal history of urinary calculi
CPT/HCPCS: 73562-26-RT; 73562-RT; 99283

== ENCOUNTER 2017-06-24 20:57 | Emergency (ER) | payer BC ==
[2017-06-24 21:19] VITALS: BP 139/83
--- NOTE | 2017-06-24 22:30 | EDM.PDOC ---
ED HPI GENERAL MEDICAL PROBLEM - General Chief Complaint: Lower Extremity Injury/Pain Stated Complaint: LEFT FOOT HURTS Time Seen by Provider: 06/24/17 22:20 Source of Information: Reports: Patient History Limitations: Reports: No Limitations - History of Present Illness INITIAL COMMENTS - FREE TEXT/NARRATIVE: Patient is a 31 year old male who presents to the E.D. complaining of left foot pain. Pain is to the left arch worsened with weightbearing and palpation. States at noon noted pain to the arch with walking on [place] today at a oil site. States returned home and took a hot shower. At approximately 1930 the pain increased to the point he could not place any weight on the affected foot. Believed it was related to gout but notes no redness, swelling, or increased warmth noted. States in the past has had increased redness, swelling ,and warmth noted. IN addition states he has similar pains with awaking in the morning that generally goes away with walking. Has no history of plantar fasciitis but does wear insoles in his boots. States he may have aggravated his foot with walking in heels while attending a [employer] . Patient states he was on his feet quite a bit during this time. He does not normally wear heels. Denies any complaints to the left lower extremity. In the past as take meloxicam with relief. Request refill for this prescription. Treatments PROFESSIONAL BUILDER: Reports: Other (see below) Other Treatments PROFESSIONAL BUILDER: Warm Bath Left Middle Feet Pain Score (Numeric/FACES): 4 - Related Data Allergies Allergy/AdvReac Type Severity Reaction Status Date / Time No Known Allergies Allergy Verified 06/28/17 01:49 MDT Home Meds: Home Meds Meloxicam 7.5 mg PO DAILY #30 tablet 06/24/17 [Rx] Past Medical History - Past Health History Medical/Surgical History: Denies Medical/Surgical History HEENT History: Reports: None Other Respiratory History: Pt reports hx of pneumonia Genitourinary History: Reports: Renal Calculus Musculoskeletal History: Reports: Gout - Infectious Disease History Infectious Disease History: Reports: Chicken Pox - Past Surgical History Other Musculoskeletal Surgeries/Procedures:: Pain in left foot. Slight swelling noted to inner portion of the mid foot. Social & Family History - Tobacco Use Smoking Status *Q: Never Smoker Second Hand Smoke Exposure: No - Caffeine Use Caffeine Use: Reports: Energy Drinks Other Caffeine Use: Energy drink once a month or less - Alcohol Use Days Per Week of Alcohol Use: 0 - Recreational Drug Use Recreational Drug Use: No Review of Systems - Review of Systems Review Of Systems: See Below Musculoskeletal: Reports: Foot Pain Skin: Reports: No Symptoms Neurological: Reports: Difficulty Walking. Denies: Numbness, Tingling ED EXAM, GENERAL - Physical Exam Exam: See Below Exam Limited By: No Limitations General Appearance: Alert, WD/WN, No Apparent Distress Ears: Hearing Grossly Normal Nose: Normal Inspection Throat/Mouth: Normal Voice, No Airway Compromise Neck: Normal Inspection, Supple Respiratory/Chest: No Respiratory Distress, No Accessory Muscle Use Cardiovascular: Normal Peripheral Pulses, Regular Rate, Rhythm Peripheral Pulses: 2+: Radial (R) Extremities: Normal Inspection, No Pedal Edema, Normal Capillary Refill, Other ( Tenderness noted to the left arch with palpation. No redness, increased swelling , increased warmth noted. Increasing pain to the left arch base of the fifth metatarsal with flexion and extension of the foot. No sensory/motor deficits distally. No pain elsewhere.) Neurological: Alert, Oriented, CN II-XII Intact, Normal Cognition, No Motor/ Sensory Deficits Psychiatric: Normal Affect, Normal Mood Skin Exam: Warm, Dry, Intact, Normal Color Course - Vital Signs Last Recorded V/S: Last Vital Signs Temp 98.5 F 06/24/17 21:14 Pulse 72 06/24/17 21:14 Resp 16 06/24/17 21:14 BP 139/83 06/24/17 21:14 Pulse Ox 98 06/24/17 21:14 - Re-Assessments/Exams Free Text/Narrative Re-Assessment/Exam: With history taking and physical examination do not believe additional studies are required at this time. Patient states he's had this same pain to the same site multiple times with x-rays obtained indicating no fracture. He does have a history of gout but clinically doesn't have any symptoms that are concerning for gout at this point. I do believe his symptoms currently experiencing are associated with plantar fasciitis. He reports pain to His arch in the morning on multiple occasions that is relieved with walking. Patient does wear arch supports. I do think he would benefit from seeing a sales operations analyst. Discharge instructions as documented. Departure - Departure Time of Disposition: 22:23 Disposition: Home, Self-Care 01 Condition: Good Clinical Impression: Plantar fasciitis of left foot - Discharge Information Prescriptions: Meloxicam 7.5 mg PO DAILY #30 tablet Instructions: Crutch Use, [id number] Referrals: Chevy Smallwood MD [Primary Care Provider] - Forms: ED Department Discharge, ED Return to Work/School Form Additional Instructions: As discussed I do believe you have plantar fasciitis with recent history of being on your feet for extended period of time while wearing high heals. Treatment is symptomatic care including ice to affected area as needed throughout the course today. For pain take meloxicam 7.5 mg by mouth every day as prescribed. Can also utilize Tylenol 650 mg every 4-6 hours as well. Refrain from any activities that cause worsening pain. Utilize Colin wrap as needed. Suggest being nonweightbearing for the next 3-5 days until symptoms improve. Advance weightbearing thereafter. Call make an appointment with the sales operations analyst in [place] for further evaluation. The ED for any new or worsening symptoms.
== END 2017-06-24 22:37 | disposition home or self-care (01) ==
LOC: JD.ED 20:57
DX: M72.2 Plantar fascial fibromatosis (principal); Z79.899 Other long term (current) drug therapy
CPT/HCPCS: 99283

== ENCOUNTER 2017-06-28 01:39 | Emergency (ER) | payer BC ==
[~2017-06-28 01:39] MED LIST: Diphtheria,Pertussis(Acell),Tetanus Vaccine 0.5 ML SDV IM ONE; Lidocaine 1% 10 ML MDV INJECT ONE
[2017-06-28 01:49] VITALS: BP 123/74
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
[2017-06-28] MEDS ORDERED: Lidocaine 1% 50 ML MDV ONE (02:28)
== END 2017-06-28 02:45 | disposition home or self-care (01) ==
LOC: JD.ED 01:39
DX: S81.811A Laceration without foreign body, right lower leg, initial encounter (principal); S61.412A Laceration without foreign body of left hand, initial encounter; S66.922A Laceration of unspecified muscle, fascia and tendon at wrist and hand level, left hand, initial encounter; S50.312A Abrasion of left elbow, initial encounter; W20.8XXA Other cause of strike by thrown, projected or falling object, initial encounter
CPT/HCPCS: 12001; 99283-25; 99284-25

== ENCOUNTER 2017-07-01 21:25 | Emergency (ER) | payer BC ==
[2017-07-01 21:33] VITALS: BP 134/90
--- NOTE | 2017-07-01 22:11 | EDM.PDOC ---
ED HPI GENERAL MEDICAL PROBLEM - General Chief Complaint: Medication Administration Stated Complaint: new perscription Time Seen by Provider: 07/01/17 21:40 Source of Information: Reports: Patient, RN Notes Reviewed History Limitations: Reports: No Limitations - History of Present Illness INITIAL COMMENTS - FREE TEXT/NARRATIVE: The patient was seen in this ED 06/28/2017 for repair of a left hand laceration that the patient suffered when punching through a window. A left third extensor tendon laceration was found, and the patient was referred to the Orthopedic Surgeon Dr. Almanza, who surgically repaired the patient's tendon around noon today. The patient states that he was prescribed tramadol, but reports that the tramadol has not been effective at controlling pain to his left third MCP joint area. The patient denies tingling or numbness. The patient states that he called the office of Dr. Almanza after hours, spoke Dr. Goldsmith, and was instructed to take both Tylenol and ibuprofen in addition to his prescribed tramadol. He states that this was also effective, therefore she called them back, and was instructed to go to the ER. The patient's PCP is Dr. Ramirez. Left Hand Pain Score (Numeric/FACES): 6 - Related Data Allergies Allergy/AdvReac Type Severity Reaction Status Date / Time No Known Allergies Allergy Verified 06/28/17 01:49 MDT Home Meds: Home Meds . [No Known Home Meds] 07/01/17 [History] Past Medical History Genitourinary History: Reports: Renal Calculus - Infectious Disease History Infectious Disease History: Reports: Chicken Pox - Past Surgical History Musculoskeletal Surgical History: Reports: Other (See Below) (Repair of left 3rd finger extensor tendon laceration 07/01/2017, per Dr. 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) ED ROS GENERAL - Review of Systems Review Of Systems: See Below Constitutional: Reports: No Symptoms HEENT: Reports: No Symptoms Respiratory: Reports: No Symptoms Cardiovascular: Reports: No Symptoms Endocrine: Reports: No Symptoms GI/Abdominal: Reports: No Symptoms : Reports: No Symptoms Musculoskeletal: Reports: No Symptoms Skin: Reports: No Symptoms Neurological: Reports: No Symptoms Psychiatric: Reports: No Symptoms Hematologic/Lymphatic: Reports: No Symptoms Immunologic: Reports: No Symptoms ED EXAM, GENERAL - Physical Exam Exam: See Below Exam Limited By: No Limitations General Appearance: Alert, WD/WN, No Apparent Distress Extremities: Other (The patient's left hand is wrapped with gauze and Coban. The patient's fingers are exposed, with no visible abnormality, such as swelling , erythema, or ecchymosis. The patient reports normal sensation to all of his fingers. Vascular status appears to be intact.) Course - Vital Signs Last Recorded V/S: Last Vital Signs Temp 36.1 C 07/01/17 21:31 Pulse 63 07/01/17 21:31 Resp 18 07/01/17 21:31 BP 134/90 07/01/17 21:31 Pulse Ox 99 07/01/17 21:31 - Re-Assessments/Exams Free Text/Narrative Re-Assessment/Exam: 07/01/17 22:00 The patient is reporting inadequate pain relief with Tylenol, ibuprofen, and tramadol. I am notified that Dr. Goldsmith contacted this ED and authorized a prescription for a stronger pain medication, however, as the patient drove himself here, I am not going to order a dose of Clovis at this time. I offered to prescribe an [facility] prescription for Cl[place]is, however, the patient reports that he does not have a credit card or debit card, and does not have a friend that he can contact that does. I am therefore recommending that he contact Dr. Almanza tomorrow for a prescription for a stronger pain medication. Departure - Departure Time of Disposition: 22:02 Disposition: Home, Self-Care 01 Condition: Good Clinical Impression: Postoperative pain of extremity - Discharge Information Referrals: Chevy Smallwood MD [Primary Care Provider] - Toribio Almanza MD [Ordering Only Provider] - Forms: ED Department Discharge Additional Instructions: You were seen in the emergency room for postoperative pain in your left hand, not adequately treated with Tylenol, ibuprofen, and tramadol. You were offered an [facility] prescription for a narcotic pain reliever, however, this requires a credit or debit card, which you do not have. We recommend that you continue your current treatment of Tylenol, hydrocodone, and tramadol, as previously prescribed. Please note that tramadol is a narcotic , and if you take tramadol, you are not to drive or operate heavy machinery. We also recommend that you elevate your left hand as much as possible. You may also place an ice pack over the back of your left hand. Follow-up with your orthopedic surgeon, Dr. Almanza, in the morning, for further evaluation and treatment. If any other problems, please do not hesitate to return to the ER.
== END 2017-07-01 22:12 | disposition home or self-care (01) ==
LOC: JD.ED 21:25
DX: G89.18 Other acute postprocedural pain (principal); M79.642 Pain in left hand; Z98.890 Other specified postprocedural states
CPT/HCPCS: 99282